=== PATIENT | male | born 1955 | race Caucasian/White ===

== ENCOUNTER 2020-12-16 12:35 | Emergency (ER) | payer OTHER, SELFPAY ==
--- NOTE | ~2020-12-16 | US_ITS ---
EXAMINATION: US VENOUS ULTRASOUND WITH DOPPLER LOWER EXTREMITY, RIGHT CLINICAL INFORMATION: Calf pain and swelling. Rule out DVT COMPARISON: 06/07/2014 TECHNIQUE: Ultrasound of the deep veins is performed from the hip to the calf with compression sonography and color and pulse Doppler assessment. Spectral analysis with color-flow imaging is performed. FINDINGS: There is normal venous compression and respiratory variation and augmented flow. The visualized common femoral vein, superficial femoral vein, profunda femoral vein, and popliteal vein show no evidence of deep venous thrombosis. There is thrombus seen in the calf involving the posterior tibial vein. This spans to the level of the ankle. There is no significant popliteal fossa cyst. US/US venous duplex LE RT IMPRESSION: No DVT above the knee demonstrated in the right lower extremity. There is thrombus within the posterior tibial vein from the proximal calf through the ankle. This critical result was discussed with RAYMUNDO Cueva by telephone at 12/16/2020 2:06 PM and it was ascertained that the content and urgency of the report was understood at the time of direct communication.
[2020-12-16 12:52] VITALS: BP 157/94; PULSE 109; RESP 16; TEMP 37; O2SAT 98; BMI 28.0
--- NOTE | 2020-12-16 13:22 | ED_ITS ---
HPI - Extremity Problem General Chief complaint: Extremity Problem Stated complaint: ?DVT RIGHT LEG Time Seen by Provider: 12/16/20 13:22 History of Present Illness HPI Narrative: Patient comes to the ER with a complaint of right calf pain and some swelling, he went to an urgent care and was sent here for an ultrasound He has no injury has had no fever, he denies any chest pain or shortness of breath Related Data Previous Rx's Medication Instructions Recorded rivaroxaban [Xarelto DVT-PE Treat See Rx Instructions .ROUTE 12/16/20 30d Start] .COMPLEX #51 ea Allergies Allergy/AdvReac Type Severity Reaction Status Date / Time No Known Allergies Allergy Verified 12/16/20 12:58 Review of Systems Review of Systems: Positive for right calf pain and swelling Negatives are no fever no chills no dizziness no weakness no fainting no feeling faint, no headache no neck pain no chest pain no shortness of breath no palpitations no pain with deep breath, no abdominal pain no nausea no vomiting, no rashes no numbness no weakness PMFSH Past Medical History PMFSH Narrative: Patient has history of a superficial clot in the left leg that was treated with aspirin in the past, he does have a history of prostate cancer Source: nursing notes reviewed Medical History (Updated 12/16/20 @ 15:53 by RAYMUNDO Cueva) DVT (deep venous thrombosis) High cholesterol Prostate CA Social History Social History Alcohol intake: current Alcohol intake frequency: a few times a month Alcohol type: beer Smoking Status: Never smoker Use of substances other than those prescribed or required for medical reasons: No Advance Directives: Yes Advance Directives Information Provided: Yes Advance Directives on File: No Physical Exam Vital Signs: Vital Signs: Last Vital Signs Temp 98.8 F 12/16/20 14:17 Pulse 112 H 12/16/20 14:17 Resp 16 12/16/20 14:17 BP 142/94 H 12/16/20 14:17 Pulse Ox 98 12/16/20 14:17 Body Mass Index 28.0 Tachycardia 112 is noted, patient says he is always tachycardic and his pulse is almost always over 100 General appearance comfortable relaxed no acute distress, no respiratory distress, A&O x3, speaking full sentences The pharynx is clear and well hydrated The neck is supple The chest is clear to auscultation with full symmetric equal breath sounds, no chest wall tenderness no pain with deep breath The heart rate and rhythm regular no murmur Abdomen soft nontender Extremities there is mild swelling of the right calf as well as tenderness in the right calf area there is no redness no warmth no wound no rash, the leg is neurovascular intact and all joints are fully mobile, gait is normal Skin no rashes Neuro motor 5 over 5 times for sensation intact and symmetrical Course Course Course Narrative: Ultrasound showed posterior tibial clot below the knee Anticoagulant Xarelto was started in the ER and patient will follow with his doctor Further discussion about the persistent heart rate between 10 and 110 and ben pérze says that is his normal it has always been that way and he has no accompanying symptoms he has no chest pain no shortness of breath no palpitations He will follow with his doctor and is given a coupon for the Xarelto for scripts for 30 days MDM - Extremity (Nontraumatic) Lab Data Result diagrams: 12/16/20 14:29 12/16/20 14:29 Labs: Lab Results 12/16/20 12/16/20 12/16/20 Range/Units 14:29 14:29 14:29 WBC 10.3 (4.8-10.8) X10*3/uL RBC 4.86 (4.60-5.80) X10*6/uL Hgb 14.7 (14.0-18.0) g/dl Hct 43.8 (42-52) % MCV 90.1 (80-98) fL MCH 30.2 (27.0-33.0) pg MCHC 33.6 (31.0-36.0) g/dl RDW 11.4 (11.0-16.0) % Plt Count 303 (160-400) X10*3/uL MPV 8.5 L (9.4-12.4) fL Immature Gran % (Auto) 0.4 (0.0-0.4) % Neut % (Auto) 70.5 (45-73) % Lymph % (Auto) 20.1 (20-40) % Swisher % (Auto) 6.8 (2-11) % Eos % (Auto) 1.6 (0-4) % Baso % (Auto) 0.6 (0-2) % Lymph # (Auto) 2.1 (1.2-4.9) X10*3/uL Swisher # (Auto) 0.7 (0.1-1.2) X10*3/uL Eos # (Auto) 0.2 (0.0-0.4) X10*3/uL Baso # (Auto) 0.1 (0.0-0.2) X10*3/uL Abs Immat Gran (auto) 0.04 H (0.00-0.03) X10*3/uL Absolute Neuts (auto) 7.3 (2.0-8.3) X10*3/uL Absolute Nucleated RBC 0.000 (0.0-0.012) X10*3/uL Nucleated RBC % (auto) 0.0 (0.0-0.2) /100WBC PT 13.2 H (10.8-13.0) SEC INR 1.1 (0.9-1.1) Sodium 140 (135-145) mmol/L Potassium 4.5 (3.3-5.1) mmol/L Chloride 103 (96-108) mmol/L Carbon Dioxide 25 (22-29) mmol/L Anion Gap 17 (12-20) BUN 11 (9-16) mg/dL Creatinine 0.92 (0.5-1.4) mg/dL Estim Creat Clear Calc 88.2 Estimated GFR > 60 Random Glucose 99 (60-115) mg/dL Calcium 9.2 (8.4-10.2) mg/dL Total Bilirubin 0.3 (0.0-1.0) mg/dL Direct Bilirubin 0.2 (0.0-0.5) mg/dL AST 22 (5-37) U/L ALT 24 (0-40) U/L Alkaline Phosphatase 107 (39-117) U/L Total Protein 7.3 (6.5-8.0) g/dL Albumin 4.4 (3.5-5.0) g/dL Discharge Plan Discharge Clinical Impression: DVT (deep venous thrombosis) Qualifiers: DVT location: lower extremity Affected thrombotic vein of extremity: other lower extremity vein Chronicity: acute Laterality: right Qualified Code(s): I82.491 - Acute embolism and thrombosis of other specified deep vein of right lower extremity Patient Disposition: Home, Self-Care Additional Instructions: Ultrasound showed a clot of a calf vein so we are treating with blood thinner Xarelto Blood test did not show any significant lab abnormality Treatment with blood thinners hopefully prevent any clots from going to the lung Treatment is controversial for a blood clot below the knee so you may need a referral to a specialist Follow with primary doctor this week and you may need referral to a specialist to discuss duration of therapy Return to ER any time for difficulty breathing, chest pain, any worse condition or any concerns Prescriptions: New Xarelto DVT-PE Treat 30d Start 15 mg (42)- 20 mg (9) tablets,dose pack See Rx Instructions .ROUTE .COMPLEX Qty: 51 RF: 0
--- NOTE | 2020-12-16 13:35 | PC.NURSE ---
pt is a/o x 3 no sob/vero noted, ultrasound is being done at bedside.
[2020-12-16 14:17] VITALS: BP 142/94; PULSE 112; RESP 16; TEMP 37.1; O2SAT 98
[2020-12-16 14:36] LABS: MANUAL DIFF FLAG NO
[2020-12-16 14:38] LABS: Basophils Absolute Auto 0.1 X10*3/uL (0.0-0.2); Basophils Percent Auto 0.6 % (0-2); Eosinophils Absolute Auto 0.2 X10*3/uL (0.0-0.4); Eosinophils Percent Auto 1.6 % (0-4); Hematocrit 43.8 % (42-52); Hemoglobin 14.7 g/dl (14.0-18.0); Imm Gran Abs Auto 0.04 X10*3/uL (0.00-0.03); Imm Gran Pct Auto 0.4 % (0.0-0.4); Lymphocytes Absolute Auto 2.1 X10*3/uL (1.2-4.9); Lymphocytes Percent Auto 20.1 % (20-40); Mean Corpuscular HGB Conc 33.6 g/dl (31.0-36.0); Mean Corpuscular Hemoglobin 30.2 pg (27.0-33.0); Mean Corpuscular Volume 90.1 fL (80-98); Mean Platelet Volume 8.5 fL (9.4-12.4); Monocytes Absolute Auto 0.7 X10*3/uL (0.1-1.2); Monocytes Percent Auto 6.8 % (2-11); Neutrophils Absolute Auto 7.3 X10*3/uL (2.0-8.3); Neutrophils Percent Auto 70.5 % (45-73); Platelet Count 303 X10*3/uL (160-400); Red Blood Count 4.86 X10*6/uL (4.60-5.80); Red Cell Distribution Width 11.4 % (11.0-16.0); White Blood Count 10.3 X10*3/uL (4.8-10.8)
[2020-12-16 14:48] LABS: INTERNATIONAL NORM RATIO 1.1 (0.9-1.1); Prothrombin Time 13.2 SEC (10.8-13.0)
[2020-12-16 15:03] LABS: Alanine Aminotransferase 24 U/L (0-40); Albumin Level 4.4 g/dL (3.5-5.0); Alkaline Phosphatase 107 U/L (39-117); Anion Gap 17 (12-20); Aspartate Amino Transferase 22 U/L (5-37); Bilirubin Direct 0.2 mg/dL (0.0-0.5); Bilirubin Total 0.3 mg/dL (0.0-1.0); Blood Urea Nitrogen 11 mg/dL (9-16); Calcium 9.2 mg/dL (8.4-10.2); Carbon Dioxide 25 mmol/L (22-29); Chloride 103 mmol/L (96-108); Creatinine Clr Calc Pharmacy 88.2; Estimated Glomerular Filt Rate > 60; Glucose Random 99 mg/dL (60-115); Potassium 4.5 mmol/L (3.3-5.1); Sodium 140 mmol/L (135-145); Total Protein 7.3 g/dL (6.5-8.0)
[2020-12-16] MEDS: Rivaroxaban 15 MG TABLET PO (16:02)
== END 2020-12-16 16:07 | disposition home or self-care (01) ==
PROVIDERS: Physician Assistant Medical; Emergency Provider Emergency Medicine; PCP Internal Medicine
DX: I82.491 Acute embolism and thrombosis of other specified deep vein of right lower extremity (principal); M79.661 Pain in right lower leg; R00.0 Tachycardia, unspecified; Z86.718 Personal history of other venous thrombosis and embolism; Z85.46 Personal history of malignant neoplasm of prostate; Z79.82 Long term (current) use of aspirin
CPT/HCPCS: 36415; 80048; 80076; 85025; 85610; 93971; 99284